=== PATIENT | male | born 1965 | race African-American/Black ===

== ENCOUNTER 2022-09-18 10:37 | Emergency (ER) | payer MEDICAID, SELFPAY ==
[2022-09-18 11:12] VITALS: BP 121/77; PULSE 93; RESP 16; TEMP 36.6; O2SAT 95; BMI 30.9
[2022-09-18 11:14] VITALS: BP 136/77; PULSE 92; RESP 18; O2SAT 97
--- NOTE | 2022-09-18 11:46 | ED_ITS ---
HPI - General Adult General: Chief complaint: General Medical Stated complaint: rash Time Seen by Provider: 09/18/22 11:22 Source: patient Mode of arrival: ambulatory Limitations: no limitations History of Present Illness: 57-year-old male presents to the ER today for a rash on his legs. Patient reports he has had rashes off and on for the last several months. Patient reports he lives somewhere and what sounds like may be a group type of home. 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 Patient was originally diagnosed with scabies and by the cream and at that time the rash improved that was around his abdomen. Patient reports this rash is different but itchy. Has been there for several days. Review of Systems General: Reports: 10 or more systems reviewed and unremarkable except in HPI and below Physical Exam Const: COMMON NORMALS: no acute distress, average body habitus, healthy appearing, alert and well nourished Resp: COMMON NORMALS: normal respiratory effort EFFORT & INSPECTION: Yes able to speak in complete sentences Cardio: COMMON NORMALS: regular rate and regular rhythm RATE: regular rate RHYTHM: regular rhythm Back/Pelvis: COMMON NORMALS: thoraco-lumbar ROM normal Extremity: NARRATIVE EXTREMITY EXAM: No swelling or deformities noted. Nontender. Neuro: SENSORIUM/ORIENTATION: Yes alert Psych: COMMON NORMALS: cooperative Skin: NARRATIVE SKIN EXAM: No obvious rash noted however small areas of dryness noted to the right lower leg. Course ED course: Patient presents to the ER with a rash that is itchy for the last several days. Patient has been seen for this before and was diagnosed with scabies but reports that rash went away. He reports living in some sort of jail possibly and working. Unknown exposures. He is doing nothing for this at home at this time. No lab work necessary today. Exam performed and will get patient medication to take home. Vital Signs: Vital signs: Vital Signs Temperature 97.8 F 09/18/22 11:12 Pulse Rate 92 09/18/22 11:14 Respiratory Rate 18 09/18/22 11:14 Blood Pressure 136/77 09/18/22 11:14 Pulse Oximetry 97 09/18/22 11:14 Oxygen Delivery Me thod 09/18/22 11:14 MDM - General Adult Medical Decision Making Patient has no obvious rash. There is some areas of dryness and excoriations noted to the right lower leg. I will give patient triamcinolone to use on those areas because he reports they do itch. But no obvious rash noted. Patient has been seen for similar things before here. Patient's story is a little bit confusing but it appears he lives in some sort of group facility and works in areas where he may be exposed to irritants. I would recommend patient avoid anything that causes irritation. I would also recommend a very good moisturizer for his skin. Establish care with a PCP or follow-up with primary care doctor in 1 week. Critical Care Time Critical Care Time: Critical Care Time: No Discharge Plan Discharge Patient Disposition: Home Clinical Impression: Skin irritation Condition: Stable Prescriptions: New triamcinolone acetonide 0.1 % cream 1 applic topical BID Qty: 15 0RF No Action permethrin 5 % cream 1 applic topical Q14D Qty: 60 2RF Rx Instructions: apply second treatment 14 days after first treatment if live lice remain Discharge Orders: Discharge ED (Routine); Ordered 09/18/22 Ordered By: Kathrin Grant Discharge Diet: Usual diet Discharge Activity: Resume usual activity Patient Instructions: Opioid Safety, Pain Management Activity Restrictions/Additional Instructions: Use cream on areas that itch as prescribed. Make sure to moisturize well with nonscented lotion. Follow-up with a PCP if no improvement in 1 week. Coding Level of Care Code ED Physical Science Aide for Charli Butler
[2022-09-18 11:58] VITALS: BP 136/76; PULSE 93; RESP 19; O2SAT 96
== END 2022-09-18 11:59 | disposition home or self-care (01) ==
PROVIDERS: Emergency Provider Physician Assistant
DX: L24.9 Irritant contact dermatitis, unspecified cause (principal)
CPT/HCPCS: 99283

== ENCOUNTER 2022-09-20 10:27 | Emergency (ER) | payer MEDICAID, SELFPAY ==
[2022-09-20 10:43] VITALS: BP 125/80; PULSE 81; RESP 16; TEMP 36.6; O2SAT 96; BMI 30.6
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
--- NOTE | 2022-09-20 13:47 | W.CSC.CMN ---
[facility] [place] Current Presentation: Client was fairly calm during interaction. He complained of his head hurting. Intervention: Client needed assistance in applying for food stamp benefits. Assistance was provided in applying for benefits online. Application was completed so that a copy could be provided to [facility] for proof of application. A copy of local resources were provided to client. He was also assisted in making an e-mail address for himself so that he could receive documentation from other agencies. Client Response: Client was thankful for help provided today. Client Barriers: Client is currently homeless and staying at the [facility]. He is not familiar with the area, so local community resource list was provided to him. Outcome of Encounter: Food stamp application was completed, an e-mail address was created for him per his request, and local community resource list provided. Client was complaining of his head hurting, so he was passed to the nurse to have his viatls evaluated. Current SI: None Current HI: None
== END 2022-09-20 11:45 | disposition home or self-care (01) ==
PROVIDERS: Emergency Provider Family Medicine
DX: B86 Scabies (principal); L30.9 Dermatitis, unspecified; M25.562 Pain in left knee; M25.561 Pain in right knee
CPT/HCPCS: 99284

== ENCOUNTER 2022-09-28 10:09 | Emergency (ER) | payer MEDICAID, SELFPAY ==
[2022-09-28 10:29] VITALS: BP 158/94; PULSE 88; RESP 14; TEMP 36.6; O2SAT 95; BMI 30.3
--- NOTE | 2022-09-28 10:42 | XR_ITS ---
WS: [id number] Exam: XR knee RT 3V* [id number] Date/Time of Exam: 09/28/2022 10:48 AM Reason For Exam: pain There is a lucent defect of the medial tibial plateau seen on 2 projections of the knee that could re present a subchondral fracture. No joint effusion seen. Mild degenerative changes of the medial and lateral joint compartment. Spurring of the patella. Soft tissues are unremarkable. Recommendations: CT scanning of the knee might be considered if clinically indicated. XR/XR knee RT 3V* [id number] IMPRESSION: 1. Lucent defect involving the medial tibial plateau noted on 2 projections. A subchondral fracture is not excluded. 2. Mild degenerative changes.
--- NOTE | 2022-09-28 10:42 | XR_ITS ---
WS: [id number] Exam: XR knee LT 3V* [id number] Date/Time of Exam: 09/28/2022 10:48 AM Reason For Exam: pain No acute fracture or dislocation. Mild degenerative change of the medial and lateral joint compartmen ts. Old healed fracture of the upper fibula. No joint effusion. Spurring of the patella. XR/XR knee LT 3V* [id number] IMPRESSION: 1. Degenerative changes. No acute fracture or dislocation. 2. Healed fracture of the proximal fibula.
--- NOTE | 2022-09-28 10:54 | ED_ITS ---
HPI - General Adult General: Chief complaint: General Medical Stated complaint: chronic pain Time Seen by Provider: 09/28/22 10:39 Source: patient Mode of arrival: ambulatory History of Present Illness: 57-year-old male presents emergency room complaining of hip pain. He initially told the nurse it was right hip pain that has had for 7 to 8 months he reported 10 of 10 pain he also has bilateral knee pain. He told x-ray tech said it was his left hip. PFSH ED PFSH: Social History (Updated 09/26/22 @ 07:41 by Malcolm Conway DO) Smoking and tobacco status: current every day smoker Alcohol intake: former Former alcohol use details: Patient was at rehab quit drinking approximately 30 days ago Course Vital Signs: Vital signs: Vital Signs Temperature 97.9 F 09/28/22 10:29 Pulse Rate 88 09/28/22 10:29 Respiratory Rate 14 09/28/22 10:29 Blood Pressure 158/94 09/28/22 10:29 Pulse Oximetry 95 09/28/22 10:29 Oxygen Delivery Me thod 09/28/22 10:29 MDM - General Adult Medical Decision Making Chronic knee hip and back pain for the last several months x-ray shows significant arthritic changes. There is a question of a tibial plateau fracture per plain read CT was done it was negative for acute fracture discharge patient home on a prednisone taper diclofenac as needed we will make arrangements for follow-up with orthopedics Lab Data Radiology Impressions Knee X-Ray 09/28/22 10:42 IMPRESSION: 1. Degenerative changes. No acute fracture or dislocation. 2. Healed fracture of the proximal fibula. Hip/Pelvis X-Ray 09/28/22 10:54 IMPRESSION: 1. Mild DJD. No fracture or other significant finding. Knee CT 09/28/22 11:28 IMPRESSION: 1. No CT evidence of acute fracture or dislocation. 2. Additional findings, as above. Discharge Plan Discharge Patient Disposition: Home Clinical Impression: Chronic knee pain, Chronic hip pain, Chronic back pain Condition: Stable Prescriptions: New prednisone 20 mg tablet 20 mg PO TID Qty: 15 0RF Rx Instructions: 1 p.o. 3 times daily x3 days, 1 p.o. twice daily x2 days, 1 p.o. daily x2 days diclofenac sodium 75 mg tablet,delayed release (DR/EC) 75 mg PO Q12H PRN (Reason: pain) Qty: 20 0RF Discontinued permethrin 5 % cream 1 applic topical Q14D Qty: 60 2RF Rx Instructions: apply second treatment 14 days after first treatment if live lice remain permethrin 5 % cream 1 applic topical Q7D Qty: 60 0RF Rx Instructions: apply second treatment 7 days after first treatment from neck to legs naproxen [Naprosyn] 500 mg tablet 500 mg PO BID PRN (Reason: pain) Qty: 14 2RF Rx Instructions: prn pain. take with food triamcinolone acetonide 0.1 % cream 1 applic topical BID Qty: 30 1RF Rx Instructions: apply to rash twice daily for up to 14 days No Action triamcinolone acetonide 0.1 % cream 1 applic topical BID Qty: 15 0RF Discharge Orders: Discharge ED (Routine); Ordered 09/28/22 Ordered By: Malcolm Conway Patient Instructions: Opioid Safety, Pain Management Activity Restrictions/Additional Instructions: You were seen today for bilateral knee pain as well as left hip pain and low back pain. These of all been chronic issues for you there are significant amount of arthritic changes on the x-rays but no acute fractures. We will discharge you home with diclofenac and prednisone, stop the naproxen. Case management make arrangements for you to follow-up with orthopedics Coding Level of Care Code ED Executive Casino Host for Charli Butler
--- NOTE | 2022-09-28 10:54 | XR_ITS ---
WS: [id number] Exam: XR hip LT 2-3V wo/w pel* [id number] Date/Time of Exam: 09/28/2022 10:54 AM Reason For Exam: Pain No fracture or dislocation. Mild degenerative narrowing of the joint compartment. Normal soft tissues . XR/XR hip LT 2-3V wo/w pel* [id number] IMPRESSION: 1. Mild DJD. No fracture or other significant finding.
[2022-09-28] MEDS: ketorolac 60 mg/2 mL INJ IM (11:03)
--- NOTE | 2022-09-28 11:28 | CTR_ITS ---
PROCEDURE INFORMATION: Exam: CT Right Lower Extremity Without Contrast, Knee Exam date and time: 09/28/2022 11:32 AM Age: 57 years old Clinical indication: Right; Patient HX: Chronic RT knee pain; Additional info: Abnormnal xray R knee TECHNIQUE: Imaging protocol: CT of the Right lower extremity without contrast was performed. Exam focused on the knee. Axial, coronal and sagittal reformatted images were created and reviewed. 3D-renderin-D post-processed images and/or MIPs were created and reviewed. Radiation optimization: All CT scans at this facility use at least one of these dose optimization techniques: automated exposure control; mA and/or kV adjustment per patient size (includes targeted exams where dose is matched to clinical indication); or iterative reconstruction. COMPARISON: CR XR knee RT 3V* [id number] 09/28/2022 10:54 AM RADIATION DOSE METRICS: Total DLP (mGy-cm): 324.41 FINDINGS: Bones/joints: Osteopenia. No CT evidence of acute fracture or dislocation. Alignment anatomic. Mild tricompartmental osteoarthrosis. No erosive or destructive change. No lytic or blastic lesion. No significant effusion. Soft tissues: Nonspecific anterior soft tissue swelling. Small popliteal cyst with ill-defined, loculated fluid dissecting into the medial gastrocnemius muscle belly. Enthesopathy at the quadriceps insertion. Moderate thickening of the distal patellar tendon with associated subjacent enthesopathy and cortical irregularity, suggesting chronic Ennice-Schlatter disease. CT/CT knee RT wo con* [id number]: 1[address] No CT evidence of acute fracture or dislocation. 2. Additional findings, as above.
[2022-09-28] MEDS: dexamethasone 10 mg/mL INJ IVP (11:43)
[2022-09-28] MEDS: orphenadrine 30 mg/mL Inj 2 mL 60 MG IVP (11:44)
[2022-09-28 13:04] VITALS: PULSE 70; RESP 16; O2SAT 100
--- NOTE | 2022-09-29 10:18 | DCPLANNER ---
Addendum entered by Karmen Mendoza 10/06/22 13:41: manager sustainability received the following message from the ortho clinic regarding follow up appointment for patient: called number in chart - Doc answered and said he is no longer staying with them and he thinks pt does not have a phone at this time. I asked him if he sees him if he could have him call our office and he said he would. I no address to mail letter to Original Note: manager sustainability had message to schedule a follow up appointment for patient with ortho. manager sustainability sent patients information to the front office staff at ortho. Patients information will be printed and reviewed. Clinic will call patient with appointment information.
== END 2022-09-28 13:05 | disposition home or self-care (01) ==
PROVIDERS: Emergency Provider Family Medicine
DX: M25.551 Pain in right hip (principal); M25.562 Pain in left knee; M25.561 Pain in right knee; M54.9 Dorsalgia, unspecified; G89.29 Other chronic pain
CPT/HCPCS: 73502; 73562; 73700; 96372; 96374; 96375; 99285; J1100; J1885; J2360

== ENCOUNTER 2022-10-11 17:29 | Emergency (ER) | payer MEDICAID, SELFPAY ==
[2022-10-11 17:33] VITALS: BP 176/97; PULSE 109; RESP 18; O2SAT 94; BMI 29.0
--- NOTE | 2022-10-11 18:43 | W.ED.PSYCHS ---
Documented by User: Dante Self DO 10/11/22 19:07 HPI - Psych General: Chief Complaint: Psychiatric Symptoms Stated Complaint: PSYCH EVAL Time Seen by Provider: 10/11/22 17:55 History of Present Illness: [id number] male presents for psych evaluation been contemplating hurting himself with suicidal thoughts. He states he states really does not have a plan however he did ask for a bottle of narcotics and he would just go take the whole bottle. Patient reports that he does feel like people are out to get him. Patient went to the behavioral crisis center who sent him here. They also sent in with affidavits for a hold. Patient however is voluntary and would like to go to a facility. Patient denies any other physical complaints Associated symptoms: Reports depression and suicidal ideation Review of Systems Const: Denies: fever(s) or chills Eyes: Denies: change in vision ENMT: Denies: throat pain or ear or mastoid pain Card: Denies: chest pain or palpitations Resp: Denies: dyspnea or wheezing GI: Denies: abdominal pain, nausea or vomiting Neuro: Denies: headache(s) or dizziness Psych: Reports: depression, hopelessness and suicidal ideation PFSH ED PFSH: Social History (Updated 09/26/22 @ 07:41 by Malcolm Conway DO) Smoking and tobacco status: current every day smoker Alcohol intake: former Former alcohol use details: Patient was at rehab quit drinking approximately 30 days ago Physical Exam Const: COMMON NORMALS: no acute distress, average body habitus, patient oriented x3 and alert HENMT: COMMON NORMALS: normocephalic, hearing grossly normal bilaterally and moist oral mucous membranes HEAD & SCALP: normocephalic Resp: COMMON NORMALS: normal respiratory effort, No use of accessory muscles and clear to auscultation bilaterally AUSCULTATION: clear to auscultation bilaterally Cardio: COMMON NORMALS: regular rate and regular rhythm RATE: regular rate RHYTHM: regular rhythm GI: COMMON NORMALS: Soft to palpation and non-tender PALPATION: Yes Soft to palpation Extremity: COMMON NORMALS: full ROM and capillary refill normal Neuro: COMMON NORMALS: patient oriented x3 SENSORIUM/ORIENTATION: Yes alert Psych: ATTITUDE: Yes paranoid SPEECH: Yes rapid MOOD & AFFECT: Yes anxious THOUGHT PROCESS: disorganized THOUGHT CONTENT: Yes Suicidality present ATTENTION/CONCENTRATION: Yes attention grossly intact Skin: COMMON NORMALS: no rashes or lesions noted and turgor normal GENERAL SKIN EXAM: no rashes or lesions noted and turgor normal Course Vital Signs: Vital signs: Vital Signs Pulse Rate 71 10/12/22 09:30 Respiratory Rate 16 10/12/22 09:30 Blood Pressure 181/54 10/12/22 06:06 Pulse Oximetry 96 10/12/22 09:30 Oxygen Delivery Me thod 10/12/22 09:30 MDM - Psych Lab Data 10/11/22 18:50 10/11/22 18:50 Laboratory Results WBC 11.3 10^3/uL (4.0-10.0) H 10/11/22 18:50 RBC 4.57 10^6/uL (4.1-5.3) 10/11/22 18:50 Hgb 13.1 g/dL (11.7-16.6) 10/11/22 18:50 Hct 40.2 % (42.0-52.0) L 10/11/22 18:50 MCV 88.0 fl (80-94) 10/11/22 18:50 MCH 28.7 pg (28.0-34.0) 10/11/22 18:50 MCHC 32.6 g/dL (30.0-36.0) 10/11/22 18:50 RDW 15.0 % (12.1-15.1) 10/11/22 18:50 Plt Count 264 10^3/cmm (130-400) 10/11/22 18:50 MPV 11.0 fL (7.4-10.4) H 10/11/22 18:50 Neut % (Auto) 50.0 % 10/11/22 18:50 Lymph % (Auto) 40.9 % 10/11/22 18:50 [place] % (Auto) 6.5 % 10/11/22 18:50 Eos % (Auto) 0.8 % 10/11/22 18:50 Baso % (Auto) 0.4 % 10/11/22 18:50 Neut # (Auto) 5.65 10^3/uL (1.8-7.7) 10/11/22 18:50 Lymph # (Auto) 4.6 10^3/uL (0.8-4.8) 10/11/22 18:50 [place] # (Auto) 0.7 10^3/uL (0.2-0.9) 10/11/22 18:50 Eos # (Auto) 0.1 10^3/uL (0.0-0.8) 10/11/22 18:50 Baso # (Auto) 0.0 10^3/uL (0.0-0.1) 10/11/22 18:50 Nucleated RBC % (auto) 0 % 10/11/22 18:50 Nucleated RBCs # 0.0 /100WBC 10/11/22 18:50 Sodium 139 mmol/L (136-145) 10/11/22 18:50 Potassium 3.7 mmol/L (3.5-5.1) 10/11/22 18:50 Chloride 104 mmol/L (98-107) 10/11/22 18:50 Carbon Dioxide 23 mmol/L (22-29) 10/11/22 18:50 Anion Gap 15.7 (5-19) 10/11/22 18:50 BUN 18 mg/dL (6-20) 10/11/22 18:50 Creatinine 0.8 mg/dL (0.7-1.2) 10/11/22 18:50 GFR Calculation 121.0 mL/min (90-130) 10/11/22 18:50 Glucose 137 mg/dL (65-115) H 10/11/22 18:50 Calculated Osmolality 292 mOsm/kg (285-295) 10/11/22 18:50 Calcium 9.3 mg/dL (8.5-10.5) 10/11/22 18:50 Total Bilirubin 0.3 mg/dL (0.15-1.2) 10/11/22 18:50 AST 12 U/L (0-40) 10/11/22 18:50 ALT 15 U/L (0-41) 10/11/22 18:50 Alkaline Phosphatase 124 U/L (40-130) 10/11/22 18:50 Total Protein 7.1 g/dL (6.6-8.7) 10/11/22 18:50 Albumin 4.3 g/dL (3.5-5.2) 10/11/22 18:50 Globulin 2.8 g/dL (1.3-4.6) 10/11/22 18:50 TSH 0.17 uIU/mL (0.27-4.20) L 10/11/22 18:50 Free T4 1.29 ng/dL (0.82-1.77) 10/11/22 18:50 Urine Color Yellow (Yellow) 10/11/22 19:35 Urine Appearance Clear (CLEAR) 10/11/22 19:35 Urine pH 5 (5-7) 10/11/22 19:35 Ur Specific [place] 1.030 (1.005-1.030) 10/11/22 19:35 Urine Protein Trace (Negative) 10/11/22 19:35 Urine Glucose (UA) Norm (Normal) 10/11/22 19:35 Urine Ketones 1+ (Negative) H 10/11/22 19:35 Urine Blood Neg (Negative) 10/11/22 19:35 Urine Nitrate Negative (Negative) 10/11/22 19:35 Urine Bilirubin Neg (Negative) 10/11/22 19:35 Urine Urobilinogen 1 mg/dL (Negative) H 10/11/22 19:35 Ur Leukocyte Esterase Negative (Negative) 10/11/22 19:35 Urine RBC 0-4 /hpf (0-2) H 10/11/22 19:35 Urine WBC 0-4 /hpf (0-5) H 10/11/22 19:35 Ur Squamous Epith Cells 0-4 /hpf (0-5) H 10/11/22 19:35 Amorphous Sediment Not Reportable 10/11/22 19:35 Urine Bacteria Trace /hpf (NONE) 10/11/22 19:35 Urine Mucus 1+ /hpf 10/11/22 19:35 Salicylates 0.5 mg/dL (3-10) L 10/11/22 18:50 Urine Opiates Screen Negative ng/mL (Negative) 10/11/22 19:35 Acetaminophen < 5.0 ug/mL (10-30) L 10/11/22 18:50 Ur Barbiturates Screen Negative ng/mL (Negative) 10/11/22 19:35 Ur Phencyclidine Scrn Negative ng/mL (Negative) 10/11/22 19:35 Ur Amphetamines Screen Negative ng/mL (Negative) 10/11/22 19:35 U Benzodiazepines Scrn Negative ng/mL (Negative) 10/11/22 19:35 Urine Cocaine Screen Negative ng/mL (Negative) 10/11/22 19:35 U Marijuana (THC) Screen Positive ng/mL (Negative) H 10/11/22 19:35 Ethyl Alcohol 42 mg/dL (0-10) H 10/11/22 18:50 SARS-CoV-2 Ag (Rapid) negative (Negative) 10/11/22 19:55 Discharge Plan Discharge Patient Disposition: Xfer Psychiatric Hosp Clinical Impression: Suicidal ideation Condition: Stable Prescriptions: No Action triamcinolone acetonide 0.1 % cream 1 applic topical BID Qty: 15 0RF prednisone 20 mg tablet 20 mg PO TID Qty: 15 0RF Rx Instructions: 1 p.o. 3 times daily x3 days, 1 p.o. twice daily x2 days, 1 p.o. 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 Fwd Exam Comprehensive Documented by User: Malcolm Conway DO 10/12/22 12:46 HPI - Psych General: Chief Complaint: Psychiatric Symptoms Stated Complaint: PSYCH EVAL Time Seen by Provider: 10/11/22 17:55 [facility] ED PFSH: Social History (Updated 09/26/22 @ 07:41 by Malcolm Conway DO) Smoking and tobacco status: current every day smoker Alcohol intake: former Former alcohol use details: Patient was at rehab quit drinking approximately 30 days ago Course Vital Signs: Vital signs: Vital Signs Pulse Rate 71 10/12/22 09:30 Respiratory Rate 16 10/12/22 09:30 Blood Pressure 181/54 10/12/22 06:06 Pulse Oximetry 96 10/12/22 09:30 Oxygen Delivery Me thod 10/12/22 09:30 MDM - Psych Medical Decision Making Care assumed at change of shift from Dr. Quiñones. Patient has been comfortable and not needed any kind of interventions. Psychiatry unit at [place] is agreed to take patient be transferred by ambulance for suicidal ideation. Unfortunately we are at capacity and neuropsychiatric unit at this time. Medical Records I reviewed the patient's medical records. Lab Data I reviewed the patient's lab results. 10/11/22 18:50 10/11/22 18:50 Laboratory Results WBC 11.3 10^3/uL (4.0-10.0) H 10/11/22 18:50 RBC 4.57 10^6/uL (4.1-5.3) 10/11/22 18:50 Hgb 13.1 g/dL (11.7-16.6) 10/11/22 18:50 Hct 40.2 % (42.0-52.0) L 10/11/22 18:50 MCV 88.0 fl (80-94) 10/11/22 18:50 MCH 28.7 pg (28.0-34.0) 10/11/22 18:50 MCHC 32.6 g/dL (30.0-36.0) 10/11/22 18:50 RDW 15.0 % (12.1-15.1) 10/11/22 18:50 Plt Count 264 10^3/cmm (130-400) 10/11/22 18:50 MPV 11.0 fL (7.4-10.4) H 10/11/22 18:50 Neut % (Auto) 50.0 % 10/11/22 18:50 Lymph % (Auto) 40.9 % 10/11/22 18:50 [place] % (Auto) 6.5 % 10/11/22 18:50 Eos % (Auto) 0.8 % 10/11/22 18:50 Baso % (Auto) 0.4 % 10/11/22 18:50 Neut # (Auto) 5.65 10^3/uL (1.8-7.7) 10/11/22 18:50 Lymph # (Auto) 4.6 10^3/uL (0.8-4.8) 10/11/22 18:50 [place] # (Auto) 0.7 10^3/uL (0.2-0.9) 10/11/22 18:50 Eos # (Auto) 0.1 10^3/uL (0.0-0.8) 10/11/22 18:50 Baso # (Auto) 0.0 10^3/uL (0.0-0.1) 10/11/22 18:50 Nucleated RBC % (auto) 0 % 10/11/22 18:50 Nucleated RBCs # 0.0 /100WBC 10/11/22 18:50 Sodium 139 mmol/L (136-145) 10/11/22 18:50 Potassium 3.7 mmol/L (3.5-5.1) 10/11/22 18:50 Chloride 104 mmol/L (98-107) 10/11/22 18:50 Carbon Dioxide 23 mmol/L (22-29) 10/11/22 18:50 Anion Gap 15.7 (5-19) 10/11/22 18:50 BUN 18 mg/dL (6-20) 10/11/22 18:50 Creatinine 0.8 mg/dL (0.7-1.2) 10/11/22 18:50 GFR Calculation 121.0 mL/min (90-130) 10/11/22 18:50 Glucose 137 mg/dL (65-115) H 10/11/22 18:50 Calculated Osmolality 292 mOsm/kg (285-295) 10/11/22 18:50 Calcium 9.3 mg/dL (8.5-10.5) 10/11/22 18:50 Total Bilirubin 0.3 mg/dL (0.15-1.2) 10/11/22 18:50 AST 12 U/L (0-40) 10/11/22 18:50 ALT 15 U/L (0-41) 10/11/22 18:50 Alkaline Phosphatase 124 U/L (40-130) 10/11/22 18:50 Total Protein 7.1 g/dL (6.6-8.7) 10/11/22 18:50 Albumin 4.3 g/dL (3.5-5.2) 10/11/22 18:50 Globulin 2.8 g/dL (1.3-4.6) 10/11/22 18:50 TSH 0.17 uIU/mL (0.27-4.20) L 10/11/22 18:50 Free T4 1.29 ng/dL (0.82-1.77) 10/11/22 18:50 Urine Color Yellow (Yellow) 10/11/22 19:35 Urine Appearance Clear (CLEAR) 10/11/22 19:35 Urine pH 5 (5-7) 10/11/22 19:35 Ur Specific [place] 1.030 (1.005-1.030) 10/11/22 19:35 Urine Protein Trace (Negative) 10/11/22 19:35 Urine Glucose (UA) Norm (Normal) 10/11/22 19:35 Urine Ketones 1+ (Negative) H 10/11/22 19:35 Urine Blood Neg (Negative) 10/11/22 19:35 Urine Nitrate Negative (Negative) 10/11/22 19:35 Urine Bilirubin Neg (Negative) 10/11/22 19:35 Urine Urobilinogen 1 mg/dL (Negative) H 10/11/22 19:35 Ur Leukocyte Esterase Negative (Negative) 10/11/22 19:35 Urine RBC 0-4 /hpf (0-2) H 10/11/22 19:35 Urine WBC 0-4 /hpf (0-5) H 10/11/22 19:35 Ur Squamous Epith Cells 0-4 /hpf (0-5) H 10/11/22 19:35 Amorphous Sediment Not Reportable 10/11/22 19:35 Urine Bacteria Trace /hpf (NONE) 10/11/22 19:35 Urine Mucus 1+ /hpf 10/11/22 19:35 Salicylates 0.5 mg/dL (3-10) L 10/11/22 18:50 Urine Opiates Screen Negative ng/mL (Negative) 10/11/22 19:35 Acetaminophen < 5.0 ug/mL (10-30) L 10/11/22 18:50 Ur Barbiturates Screen Negative ng/mL (Negative) 10/11/22 19:35 Ur Phencyclidine Scrn Negative ng/mL (Negative) 10/11/22 19:35 Ur Amphetamines Screen Negative ng/mL (Negative) 10/11/22 19:35 U Benzodiazepines Scrn Negative ng/mL (Negative) 10/11/22 19:35 Urine Cocaine Screen Negative ng/mL (Negative) 10/11/22 19:35 U Marijuana (THC) Screen Positive ng/mL (Negative) H 10/11/22 19:35 Ethyl Alcohol 42 mg/dL (0-10) H 10/11/22 18:50 SARS-CoV-2 Ag (Rapid) negative (Negative) 10/11/22 19:55 Discharge Plan Discharge Patient Disposition: Xfer Psychiatric Hosp Clinical Impression: Suicidal ideation Condition: Stable Prescriptions: No Action triamcinolone acetonide 0.1 % cream 1 applic topical BID Qty: 15 0RF prednisone 20 mg tablet 20 mg PO TID Qty: 15 0RF Rx Instructions: 1 p.o. 3 times daily x3 days, 1 p.o. twice daily x2 days, 1 p.o. 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
[2022-10-11 19:18] LABS: Basophils % 0.4 %; Eosinophils # 0.1 10^3/uL (0.0-0.8); Eosinophils % 0.8 %; Hematocrit 40.2 % (42.0-52.0); Hemoglobin 13.1 g/dL (11.7-16.6); Lymphocytes # 4.6 10^3/uL (0.8-4.8); Lymphocytes % 40.9 %; Mean Corpuscular HGB Conc 32.6 g/dL (30.0-36.0); Mean Corpuscular Hemoglobin 28.7 pg (28.0-34.0); Monocytes # 0.7 10^3/uL (0.2-0.9); Monocytes % 6.5 %; Neutrophils # 5.65 10^3/uL (1.8-7.7); Nucleated Red Blood Cells % 0 %; Platelet Count 264 10^3/cmm (130-400); Red Blood Count 4.57 10^6/uL (4.1-5.3); White Blood Count 11.3 10^3/uL (4.0-10.0)
[2022-10-11 19:38] LABS: Alanine Aminotransferase 15 U/L (0-41); Albumin Level 4.3 g/dL (3.5-5.2); Alkaline Phosphatase 124 U/L (40-130); Anion Gap 15.7 (5-19); Aspartate Amino Transferase 12 U/L (0-40); Blood Urea Nitrogen 18 mg/dL (6-20); Calcium 9.3 mg/dL (8.5-10.5); Carbon Dioxide 23 mmol/L (22-29); Chloride 104 mmol/L (98-107); Globulin 2.8 g/dL (1.3-4.6); Glucose 137 mg/dL (65-115); Osmolality Calculated 292 mOsm/kg (285-295); Potassium 3.7 mmol/L (3.5-5.1); Salicylate 0.5 mg/dL (3-10); Sodium 139 mmol/L (136-145); Total Bilirubin 0.3 mg/dL (0.15-1.2); Total Protein 7.1 g/dL (6.6-8.7)
[2022-10-11 19:44] LABS: Acetaminophen < 5.0 ug/mL (10-30)
[2022-10-11] MEDS: acetaminophen 325 mg Tablet 650 MG PO (19:53)
[2022-10-11 20:02] LABS: Add Urine Microscopic? YES; Bilirubin Urine Neg (Negative); Blood Urine Neg (Negative); Glucose Urine UA Norm (Normal); Ketones Urine 1+ (Negative); Leukocyte Esterase Urine Negative (Negative); Nitrate Urine Negative (Negative); Protein Urine Trace (Negative); Urine Appearance Clear (CLEAR); Urine Color Yellow (Yellow); Urobilinogen Urine 1 mg/dL (Negative); pH Urine 5 (5-7)
[2022-10-11 20:03] LABS: Add Urine Culture? No; Amphetamines Screen Urine Negative (Negative); Bacteria Urine TRACE /hpf; Barbiturates Screen Urine Negative (Negative); Benzodiazepines Screen Urine Negative (Negative); Cocaine Screen Urine Negative (Negative); Mucus Urine 1+ /hpf; Opiate Screen Urine Negative (Negative); PCP Screen Urine Negative (Negative); RBC Urine 0-4 /hpf (0-2); Squamous Epithelial Cell Urine 0-4 /hpf (0-5); THC Screen Urine Positive (Negative); WBC Urine 0-4 /hpf (0-5)
[2022-10-11 20:17] LABS: SARS Covid-2 Antigen negative (Negative)
[2022-10-11 20:56] LABS: Alcohol Level 42 mg/dL (0-10); Thyroid Stimulating Hormone 0.17 uIU/mL (0.27-4.20)
[2022-10-11 23:34] LABS: Free T4 Free Thyroxine 1.29 ng/dL (0.82-1.77)
[2022-10-12 06:06] VITALS: BP 181/54; PULSE 78; RESP 18; O2SAT 99
[2022-10-12] MEDS: nicotine 21 mg Patch 1 PATCH TRANSDERMA (09:27)
[2022-10-12 09:30] VITALS: PULSE 71; RESP 16; O2SAT 96
--- NOTE | 2022-10-12 10:36 | DCPLANNER ---
Patient is needing psych placement, the following facilities were called looking for placement for patient; [facility] - no beds [place] - to [facility] - [facility]ic[facility]email [facility] - on divert [facility] - no beds [facility] - no beds [facility] - closed down [facility] - no beds
--- NOTE | 2022-10-12 10:39 | DCPLANNER ---
Addendum entered by Karmen Mendoza 10/12/22 11:11: Patient was accepted at [facility], watch case polisher informed nurse, charge nurse and physician that patient was accepted. Addendum entered by Karmen Mendoza 10/12/22 10:48: [facility] - declined patient Original Note: data warehouse manager was asked to look for psych placement for patient. data warehouse manager called and faxed patients information to the following facilities; [facility] - no beds [place] - to [facility] - left voicemail at 9:45 [facility] - left voicemail at 9:45 [facility] - faxed information 10:35 [place] - no [facility] - no beds [facility] - to [facility] - no beds can call back in the afternoon [facility] - no beds [facility] - faxed information at [phone] [id number] - faxed information at 10:36 [place] - to [facility] - faxed information at 10:35 [facility] - faxed information at 10:40 [facility] - faxed information at 10:30 [place] - no beds [facility] - no beds call back afternoon [facility] - no [facility] data warehouse manager will call and follow up with the facilities that patients information was faxed to.
[2022-10-12] MEDS: LORazepam 2 mg Tablet PO (12:54)
[2022-10-12 14:09] VITALS: PULSE 71; RESP 16; O2SAT 96
== END 2022-10-12 12:42 ==
PROVIDERS: Student in an Organized Health Care Education/Training Program; Emergency Provider Family Medicine
DX: R45.851 Suicidal ideations (principal); Z20.822 Contact with and (suspected) exposure to COVID-19; F17.210 Nicotine dependence, cigarettes, uncomplicated
CPT/HCPCS: 36415; 80053; 80306; 80307; 81001; 84439; 84443; 85025; 87426; 99285